=== PATIENT | female | born 1995 | race Caucasian/White ===

== ENCOUNTER 2018-06-20 10:44 | Emergency (ER) | payer MEDICAID, OTHER ==
[2018-06-20 11:02] VITALS: BMI 19.7
[2018-06-20 11:06] VITALS: O2SAT 100
--- NOTE | 2018-06-20 11:31 | C.PDOC ---
History Of Present Illness 22 y/o female presents to the ER complaining of subjective fever, sore throat, and cough with clear phlegm for the past 3 days. Patient denies having headache, nasal congestion, nausea, and vomiting. Time Seen by Provider: 06/20/18 11:22 Chief Complaint (Nursing): Cough, Cold, Congestion History Per: Patient History/Exam Limitations: no limitations Onset/Duration Of Symptoms: Days Current Symptoms Are (Timing): Still Present Severity: Moderate Past Medical History Reviewed: Historical Data, Nursing Documentation, Vital Signs Vital Signs: Last Vital Signs Temp 99.6 F 06/20/18 11:02 Pulse 119 H 06/20/18 11:02 Resp 17 06/20/18 11:02 BP 127/83 06/20/18 11:02 Pulse Ox 100 06/20/18 11:02 - Medical History PMH: No Chronic Diseases Surgical History: No Surg Hx Family History: States: No Known Family Hx - Social History Hx Tobacco Use: No Hx Alcohol Use: No Hx Substance Use: No - Immunization History Hx Tetanus Toxoid Vaccination: Yes Hx Influenza Vaccination: Yes (2017) Hx Pneumococcal Vaccination: Yes Review Of Systems Except As Marked, All Systems Reviewed And Found Negative. Constitutional: Positive for: Fever (subjective fever). Negative for: Chills ENT: Positive for: Throat Pain. Negative for: Nose Congestion Respiratory: Positive for: Cough Gastrointestinal: Negative for: Nausea, Vomiting Neurological: Negative for: Headache Physical Exam - Physical Exam Appears: Non-toxic, No Acute Distress Skin: Normal Color, Warm, Dry Head: Atraumatic, Normacephalic Eye(s): bilateral: Normal Inspection Ear(s): Bilateral: Normal Nose: Normal Oral Mucosa: Moist Throat: Erythema (bilateral pharyngeal erythema), Exudate (tonsillar exudates) Neck: Supple Chest: Symmetrical Cardiovascular: Rhythm Regular Respiratory: Normal Breath Sounds, No Rales, No Rhonchi, No Wheezing Neurological/Psych: Oriented x3, Normal Speech ED Course And Treatment O2 Sat by Pulse Oximetry: 100 (RA) Pulse Ox Interpretation: Normal Progress Note: Patient treated with Amoxicillin PO and Motrin PO. Patient has been discharged and instructed to follow up with PMD in 1-2 days. Disposition - Disposition Disposition: HOME/ ROUTINE Disposition Time: 11:30 Condition: STABLE Additional Instructions: Follow up with your PMD within 1-2 days. Return to ED if feel worse. Prescriptions: Amoxicillin [Amoxil 500 mg Cap] 500 mg PO Q8 #30 cap Ibuprofen [Motrin Tab] 400 mg PO Q8 #30 tab Benzonatate [Tessalon Perles] 2 tab PO TID #60 sgl Instructions: Sore Throat, Adult (DC) Forms: [facility] (Polish), School Excuse, Work Excuse - Clinical Impression Clinical Impression: Tonsillitis - PA / [employer] / Resident Statement MD/DO has reviewed & agrees with the documentation as recorded. - Scribe Statement The provider has reviewed the documentation as recorded by the Maryjoibe Len Esposito Provider Attestation All medical record entries made by the Stephanie were at my direction and personally dictated by me. I have reviewed the chart and agree that the record accurately reflects my personal performance of the history, physical exam, medi shawna decision making, and the department course for this patient. I have also personally directed, reviewed, and agree with the discharge instructions and disposition.
[2018-06-20 12:05] VITALS: BP 118/74; PULSE 102; RESP 18; TEMP 99
== END 2018-06-20 11:45 | disposition home or self-care (01) ==
LOC: C.ER 10:44
DX: J03.90 Acute tonsillitis, unspecified (principal)